=== PATIENT | male | born 1970 | race Caucasian/White ===

== ENCOUNTER 2024-07-22 12:11 | Outpatient (CLI) | payer OTHER ==
[~2024-07-22 12:11] MED LIST: Magnevist 469MG/ML 20 ML VIAL ONE
== END 2024-07-22 12:12 | disposition home or self-care (01) ==
LOC: CSHMRI 12:11
PROVIDERS: ATTEND Urology
DX: N28.89 Other specified disorders of kidney and ureter (principal); N28.1 Cyst of kidney, acquired
CPT/HCPCS: 74183